=== PATIENT | female | born 1990 | race Caucasian/White ===

== ENCOUNTER → 2025-01-06 15:44 | Outpatient (REF) | payer BC, SELFPAY | LOC: REG 15:44 | PROVIDERS: ATTENDING PHYSICIAN Student in an Organized Health Care Education/Training Program; FAMILY PHYSICIAN Nurse Practitioner Primary Care | DX: Z34.90 Encounter for supervision of normal pregnancy, unspecified, unspecified trimester (principal) | CPT/HCPCS: 36415; 86850; 86870; 86900; 86901; J2790 ==

== ENCOUNTER → 2025-02-20 15:50 | Outpatient (REF) | payer BC, SELFPAY | LOC: PNTC 15:50 | PROVIDERS: ATTENDING PHYSICIAN Student in an Organized Health Care Education/Training Program | DX: O36.8332 Maternal care for abnormalities of the fetal heart rate or rhythm, third trimester, fetus 2 (principal) | CPT/HCPCS: 59025 ==